=== PATIENT | male | born 1935 | race Caucasian/White ===

== ENCOUNTER → 2018-07-06 | Day surgery (SDC) | payer MEDICARE, BC ==
[~2018-07-06] MED LIST: BUPIVACAINE HCL 0.25% MPF 30 ML SOL INFIL ONE; TRIAMCINOLONE ACETONIDE 40 MG/ML SUS ONE
[2018-07-06 13:47] VITALS: BP 143/72; RESP 16
[2018-07-06 14:05] VITALS: PULSE 54; TEMP 97.9; O2SAT 97
== END | disposition home or self-care (01) | DRG 554 ==
LOC: SURG 12:27
PROVIDERS: ATTEND Nurse Anesthetist, Certified Registered
DX: M13.872 Other specified arthritis, left ankle and foot (principal)
CPT/HCPCS: J3300